=== PATIENT | female | born 1975 | race Caucasian/White ===

== ENCOUNTER 2020-06-08 19:47 | Emergency (ER) | payer OTHER ==
[~2020-06-08 19:47] MED LIST: ABILIFY30 MG PO; ALDACTONE 25MG25 MG PO; ALDACTONE25 MG PO; ALLEGRA ALLERGY60 MG PO; AMBIEN10 MG PO; AMITRIPTYLINE H75 MG PO; CATAPRES 0.1MG0.1 MG PO; CHLORTHALIDONE25 MG PO; COZAAR100 MG PO; CYCLOBENZAPRINE10 MG PO; DAILY MULTIPLE1 EAC1 PO; DIAMOX 250 MG250 MG PO; FLONASE 0.05% N16 GM; FLUOXETINE HCL20 MG PO; GLUCOPHAGE1000 MG PO; HYGROTON TAB 2525 MG PO; IBUPROFEN800 MG PO; K-DUR TAB 10 M10 MEQ PO; K-DUR TAB 20 M20 MEQ PO; LAMICTAL200 MG PO; LANTUS SOL100 UNIT/1 SQ; LASIX40 MG PO; LYRICA100 MG PO; MECLIZINE HCL25 MG PO; MELATONIN10 M2 PO; METOPROLOL SUC100 MG PO; MINIPRESS5 MG PO; MYCOSTATIN OINT15 GM TOP; NAPROSYN500 MG PO; NORVASC 5 MG TAB5 MG PO; NOVOLOG FL100 UNIT/1 SQ; OMEPRAZOLE20 MG PO; OMNICEF 300 MG300 MG PO; PHENERGAN 25 MG25 M1 PO; PROVENTIL HFA6.7 GM INH; PROZAC20 MG PO; REQUIP3 MG PO; ROBITUSSIN AC480 ML PO; SUBOXONE 8 MG-1 EACH SL; TAMIFLU75 MG PO; VIBRAMYCIN100 MG PO; VITAMIN D31000 UNI1 PO; ZANAFLEX4 MG PO; ZOFRAN ODT 4 MG4 MG PO; ZOFRAN4 MG PO
== END 2020-06-08 20:21 | disposition left against medical advice (07) ==
LOC: ER1 19:47
DX: R50.9 Fever, unspecified (principal); M79.10 Myalgia, unspecified site; Z53.21 Procedure and treatment not carried out due to patient leaving prior to being seen by health care provider

== ENCOUNTER 2020-07-02 21:46 | Emergency (ER) | payer OTHER | END 2020-07-03 00:19 | disposition left against medical advice (07) | LOC: ER1 21:46 | DX: Z53.21 Procedure and treatment not carried out due to patient leaving prior to being seen by health care provider (principal) | CPT/HCPCS: 93005 ==

== ENCOUNTER 2020-07-16 19:17 | Emergency (ER) | payer OTHER ==
[2020-07-16 20:17] LABS: HEMOGLOBIN 10.4 gm/dl (12.3-15.3); RED BLOOD COUNT 4.23 M/UL (4.00-5.10); WHITE BLOOD COUNT 8.5 K/UL (4.5-11.0)
[2020-07-16 20:30] LABS: BUN/CREATININE RATIO 11 (0-10)
== END 2020-07-16 21:26 | disposition left against medical advice (07) ==
LOC: ER1 19:17
PROVIDERS: Emergency Medicine
DX: R07.9 Chest pain, unspecified (principal); F41.9 Anxiety disorder, unspecified; J44.9 Chronic obstructive pulmonary disease, unspecified; E78.5 Hyperlipidemia, unspecified; I10 Essential (primary) hypertension; E11.9 Type 2 diabetes mellitus without complications; F17.210 Nicotine dependence, cigarettes, uncomplicated
CPT/HCPCS: 71045; 80053; 82550; 82553; 83735; 83874; 84484; 84703; 85025; 93005; 96365; 96375; 99285; J2765; J3475

== ENCOUNTER 2020-07-24 02:38 | Emergency (ER) | payer OTHER ==
[2020-07-24 03:23] LABS: RED BLOOD COUNT 4.41 M/UL (4.00-5.10); WHITE BLOOD COUNT 9.2 K/UL (4.5-11.0)
[2020-07-24 03:45] LABS: BUN/CREATININE RATIO 14 (0-10)
[2020-07-24] MEDS ORDERED: IBUPROFEN600 MG PO (05:57)
== END 2020-07-24 06:23 | disposition home or self-care (01) ==
LOC: ER1 02:38
PROVIDERS: Internal Medicine
DX: R07.89 Other chest pain (principal); E11.9 Type 2 diabetes mellitus without complications; J45.909 Unspecified asthma, uncomplicated; I10 Essential (primary) hypertension; E66.9 Obesity, unspecified; Z90.49 Acquired absence of other specified parts of digestive tract; F17.210 Nicotine dependence, cigarettes, uncomplicated; Z88.1 Allergy status to other antibiotic agents; Z79.4 Long term (current) use of insulin
CPT/HCPCS: 71046; 80053; 82550; 82553; 84484; 85025; 93005; 96374; 96375; 99285; J2270; J2405

== ENCOUNTER 2020-11-28 00:47 | Emergency (ER) | payer OTHER ==
[~2020-11-28 00:47] MED LIST changes: +IBUPROFEN600 MG PO
[2020-11-28 02:03] LABS: HEMOGLOBIN 11.6 gm/dl (12.3-15.3); RED BLOOD COUNT 4.68 M/UL (4.00-5.10); WHITE BLOOD COUNT 6.2 K/UL (4.5-11.0)
[2020-11-28 02:03] LABS: BUN/CREATININE RATIO 10 (0-10)
[2020-11-28] MEDS ORDERED: REGLAN5 MG PO (03:27)
== END 2020-11-28 03:32 | disposition home or self-care (01) ==
LOC: ER1 00:47
PROVIDERS: Student in an Organized Health Care Education/Training Program
DX: U07.1 COVID-19 (principal); J44.9 Chronic obstructive pulmonary disease, unspecified; E11.9 Type 2 diabetes mellitus without complications; I10 Essential (primary) hypertension; F17.210 Nicotine dependence, cigarettes, uncomplicated
CPT/HCPCS: 0240U; 71045; 80053; 82550; 82553; 83605; 83690; 83874; 84484; 84702; 85025; 93005; 96374; 96375; 99285; J2405; J2765

== ENCOUNTER 2021-02-08 20:42 | Emergency (ER) | payer MEDICARE, OTHER ==
[~2021-02-08 20:42] MED LIST changes: +REGLAN5 MG PO
[2021-02-08 21:13] LABS: HEMOGLOBIN 13.1 gm/dl (12.3-15.3); RED BLOOD COUNT 4.99 M/UL (4.00-5.10); WHITE BLOOD COUNT 12.3 K/UL (4.5-11.0)
[2021-02-08 21:41] LABS: BUN/CREATININE RATIO 9 (0-10)
== END 2021-02-08 23:15 | disposition home or self-care (01) ==
LOC: ER1 20:42
PROVIDERS: Emergency Medicine
DX: R07.89 Other chest pain (principal); I10 Essential (primary) hypertension; E11.9 Type 2 diabetes mellitus without complications; J44.9 Chronic obstructive pulmonary disease, unspecified; F17.200 Nicotine dependence, unspecified, uncomplicated; Z88.1 Allergy status to other antibiotic agents; Z20.822 Contact with and (suspected) exposure to COVID-19
CPT/HCPCS: 71045; 80053; 82550; 82553; 83874; 84484; 85025; 85379; 93005; 99285; U0002

== ENCOUNTER 2021-03-30 16:33 | Emergency (ER) | payer MEDICARE, OTHER | END 2021-03-30 16:40 | disposition left against medical advice (07) | LOC: ER1 16:33 | DX: R07.9 Chest pain, unspecified (principal); F17.200 Nicotine dependence, unspecified, uncomplicated; E78.5 Hyperlipidemia, unspecified; I10 Essential (primary) hypertension; E11.9 Type 2 diabetes mellitus without complications | CPT/HCPCS: 99282 ==

== ENCOUNTER 2021-05-19 01:16 | Emergency (ER) | payer OTHER ==
[2021-05-19 01:59] LABS: HEMOGLOBIN 12.2 gm/dl (12.3-15.3); RED BLOOD COUNT 4.45 M/UL (4.00-5.10); WHITE BLOOD COUNT 8.6 K/UL (4.5-11.0)
[2021-05-19 02:37] LABS: BUN/CREATININE RATIO 15 (0-10)
== END 2021-05-19 05:03 | disposition home or self-care (01) ==
LOC: ER1 01:16
PROVIDERS: Family Medicine
DX: R07.9 Chest pain, unspecified (principal); E11.9 Type 2 diabetes mellitus without complications; J44.9 Chronic obstructive pulmonary disease, unspecified; Z90.710 Acquired absence of both cervix and uterus; F17.290 Nicotine dependence, other tobacco product, uncomplicated
CPT/HCPCS: 71045; 80053; 82550; 82553; 83874; 83880; 84484; 85025; 85379; 93005; 99285

== ENCOUNTER 2021-06-09 06:40 | Emergency (ER) | payer MEDICARE, OTHER ==
[2021-06-09 07:17] LABS: HEMOGLOBIN 12.5 gm/dl (12.3-15.3); RED BLOOD COUNT 4.65 M/UL (4.00-5.10); WHITE BLOOD COUNT 8.3 K/UL (4.5-11.0)
== END 2021-06-09 11:58 | disposition home or self-care (01) ==
LOC: ER1 06:40
PROVIDERS: Physician Assistant Medical
DX: R07.9 Chest pain, unspecified (principal); Z91.012 Allergy to eggs; Z20.822 Contact with and (suspected) exposure to COVID-19; R06.02 Shortness of breath; F17.210 Nicotine dependence, cigarettes, uncomplicated
CPT/HCPCS: 71045; 80053; 82550; 82553; 83874; 84439; 84443; 84484; 85025; 93005; 99285; U0002

== ENCOUNTER → 2021-06-15 | Outpatient (CLI) | payer MEDICARE, OTHER | LOC: HEART 5 13:30 | DX: R07.9 Chest pain, unspecified (principal); R06.02 Shortness of breath; R00.2 Palpitations; I34.0 Nonrheumatic mitral (valve) insufficiency | CPT/HCPCS: 93306 ==

== ENCOUNTER → 2021-06-17 12:33 | Emergency (ER) | payer MEDICARE, OTHER | END | disposition left against medical advice (07) | LOC: ER1 12:33 | DX: Z53.21 Procedure and treatment not carried out due to patient leaving prior to being seen by health care provider (principal) ==

== ENCOUNTER 2021-06-25 00:31 | Emergency (ER) | payer MEDICARE, OTHER ==
[2021-06-25 01:18] LABS: HEMOGLOBIN 11.8 gm/dl (12.3-15.3); RED BLOOD COUNT 4.27 M/UL (4.00-5.10); WHITE BLOOD COUNT 9.6 K/UL (4.5-11.0)
[2021-06-25 01:44] LABS: BUN/CREATININE RATIO 16 (0-10)
== END 2021-06-25 04:49 | disposition home or self-care (01) ==
LOC: ER1 00:31
PROVIDERS: Emergency Medicine
DX: R07.89 Other chest pain (principal); E11.9 Type 2 diabetes mellitus without complications; I10 Essential (primary) hypertension; J44.9 Chronic obstructive pulmonary disease, unspecified; F17.210 Nicotine dependence, cigarettes, uncomplicated; Z88.1 Allergy status to other antibiotic agents
CPT/HCPCS: 71045; 80053; 82550; 82553; 83874; 84484; 85025; 93005; 99285; Q9967

== ENCOUNTER 2021-08-21 09:29 | Emergency (ER) | payer MEDICARE, OTHER ==
[2021-08-21] MEDS ORDERED: ZOFRAN ODT 4 MG4 MG PO (09:58)
[2021-08-21] MEDS ORDERED: DOXYCYCLINE HY100 MG PO (09:58)
== END 2021-08-21 10:30 | disposition home or self-care (01) ==
LOC: ER1 09:29
DX: L05.01 Pilonidal cyst with abscess (principal); E11.40 Type 2 diabetes mellitus with diabetic neuropathy, unspecified; I10 Essential (primary) hypertension; F17.200 Nicotine dependence, unspecified, uncomplicated; Z86.59 Personal history of other mental and behavioral disorders; Z88.1 Allergy status to other antibiotic agents
CPT/HCPCS: 99282; J0696

== ENCOUNTER 2021-09-10 18:11 | Emergency (ER) | payer MEDICARE, OTHER ==
[~2021-09-10 18:11] MED LIST changes: +DOXYCYCLINE HY100 MG PO
== END 2021-09-10 23:00 | disposition left against medical advice (07) ==
LOC: ER1 18:11
DX: Z53.21 Procedure and treatment not carried out due to patient leaving prior to being seen by health care provider (principal)

== ENCOUNTER → 2021-09-11 | Emergency (ER) | payer MEDICARE, OTHER ==
[~2021-09-11] MED LIST changes: +BACTRIM DS TAB1 EACH PO
== END | disposition left against medical advice (07) ==
LOC: ER1 00:17
DX: Z53.21 Procedure and treatment not carried out due to patient leaving prior to being seen by health care provider (principal)

== ENCOUNTER 2021-09-12 04:43 | Emergency (ER) | payer MEDICARE, OTHER ==
[~2021-09-12 04:43] MED LIST changes: -BACTRIM DS TAB1 EACH PO
[2021-09-12 06:51] LABS: BUN/CREATININE RATIO 20 (0-10)
[2021-09-12 07:15] LABS: HEMOGLOBIN 12.5 gm/dl (12.3-15.3); RED BLOOD COUNT 4.41 M/UL (4.00-5.10); WHITE BLOOD COUNT 10.9 K/UL (4.5-11.0)
[2021-09-12] MEDS ORDERED: BACTRIM DS TAB1 EACH PO (07:57)
== END 2021-09-12 09:15 | disposition home or self-care (01) ==
LOC: ER1 04:43
PROVIDERS: Physician Assistant
DX: L60.0 Ingrowing nail (principal); R11.2 Nausea with vomiting, unspecified; L08.9 Local infection of the skin and subcutaneous tissue, unspecified; E11.9 Type 2 diabetes mellitus without complications; I10 Essential (primary) hypertension; F17.210 Nicotine dependence, cigarettes, uncomplicated; Z79.4 Long term (current) use of insulin; Z88.1 Allergy status to other antibiotic agents
CPT/HCPCS: 73630; 80053; 81001; 85025; 85652; 86140; 87086; 96374; 99284; J2405

== ENCOUNTER 2021-10-03 16:59 | Emergency (ER) | payer MEDICARE, OTHER ==
[~2021-10-03 16:59] MED LIST changes: +BACTRIM DS TAB1 EACH PO
[2021-10-03 17:59] LABS: HEMOGLOBIN 12.4 gm/dl (12.3-15.3); RED BLOOD COUNT 4.38 M/UL (4.00-5.10); WHITE BLOOD COUNT 10.1 K/UL (4.5-11.0)
[2021-10-03 18:22] LABS: BUN/CREATININE RATIO 17 (0-10)
== END 2021-10-03 20:53 | disposition home or self-care (01) ==
LOC: ER1 16:59
DX: R07.9 Chest pain, unspecified (principal); L05.01 Pilonidal cyst with abscess; F17.290 Nicotine dependence, other tobacco product, uncomplicated; E11.9 Type 2 diabetes mellitus without complications
CPT/HCPCS: 71045; 80053; 82550; 82553; 84484; 85025; 85379; 93005; 99285

== ENCOUNTER 2021-11-07 07:40 | Emergency (ER) | payer MEDICARE, OTHER | END 2021-11-07 10:42 | disposition home or self-care (01) | LOC: ER1 07:40 | DX: M17.0 Bilateral primary osteoarthritis of knee (principal); I10 Essential (primary) hypertension; E11.9 Type 2 diabetes mellitus without complications; F17.210 Nicotine dependence, cigarettes, uncomplicated; Z79.84 Long term (current) use of oral hypoglycemic drugs; Z79.4 Long term (current) use of insulin | CPT/HCPCS: 73564; 99283 ==

== ENCOUNTER 2021-11-10 00:17 | Emergency (ER) | payer OTHER | END 2021-11-10 00:45 | disposition left against medical advice (07) | LOC: ER1 00:17 | DX: Z53.21 Procedure and treatment not carried out due to patient leaving prior to being seen by health care provider (principal) ==

== ENCOUNTER 2021-12-07 09:02 | Emergency (ER) | payer OTHER | END 2021-12-07 12:47 | disposition home or self-care (01) | LOC: ER1 09:02 | DX: M17.11 Unilateral primary osteoarthritis, right knee (principal); E11.9 Type 2 diabetes mellitus without complications; I10 Essential (primary) hypertension; F17.200 Nicotine dependence, unspecified, uncomplicated; Z88.1 Allergy status to other antibiotic agents | CPT/HCPCS: 73562; 73590; 82962; 96372; 99283; J2270 ==

== ENCOUNTER 2021-12-24 00:24 | Emergency (ER) | payer MEDICARE, OTHER ==
[2021-12-24] MEDS ORDERED: HYDROCODONE-AC1 EACH PO (02:02)
== END 2021-12-24 02:11 | disposition home or self-care (01) ==
LOC: ER1 00:24
DX: G89.29 Other chronic pain (principal); M25.561 Pain in right knee; E11.9 Type 2 diabetes mellitus without complications; E66.9 Obesity, unspecified; I10 Essential (primary) hypertension; F17.200 Nicotine dependence, unspecified, uncomplicated
CPT/HCPCS: 96372; 99283; J1885

== ENCOUNTER 2021-12-26 01:29 | Emergency (ER) | payer MEDICARE, OTHER ==
[~2021-12-26 01:29] MED LIST changes: +HYDROCODONE-AC1 EACH PO
== END 2021-12-26 02:25 | disposition left against medical advice (07) ==
LOC: ER1 01:29
DX: U07.1 COVID-19 (principal); E11.9 Type 2 diabetes mellitus without complications; I10 Essential (primary) hypertension; Z90.89 Acquired absence of other organs; Z90.49 Acquired absence of other specified parts of digestive tract; Z88.8 Allergy status to other drugs, medicaments and biological substances
CPT/HCPCS: 99283